=== PATIENT | male | born 1980 | race Caucasian/White ===

== ENCOUNTER 2017-07-18 17:22 | Emergency (ER) | payer BC ==
[~2017-07-18] VITALS: Ht 190.5 cm; Wt 113.4 kg
[2017-07-18 17:45] VITALS: BP 157/101
--- NOTE | 2017-07-18 18:11 | NUR ---
URINE OBTAINED CALLED LAB FOR PICKUP
--- NOTE | 2017-07-18 18:20 | NUR ---
POST VOID RESIDUAL [id number]. INFORMED.
[2017-07-18 18:29] LABS: APPEARANCE,URINE Clear (CLEAR); BILIRUBIN,URINE Negative (NEGATIVE); BLOOD, URINE Negative Ery/uL (NEGATIVE); COLOR,URINE Yellow (YELLOW); KETONES,URINE Negative (NEGATIVE); LEUKOCYTE ESTERASE ,URINE Negative (NEGATIVE); NITRITE, URINE Negative (NEGATIVE); PROTEIN,URINE Negative (NEGATIVE); UGLUCOSE Negative (NEGATIVE); UROBILINOGEN,URINE 0.2 EU/dL (0.2)
== END 2017-07-18 18:53 | disposition home or self-care (01) ==
LOC: ER 17:27
DX: R35.0 Frequency of micturition (principal); G89.29 Other chronic pain; I10 Essential (primary) hypertension
CPT/HCPCS: 81001; 99283; A4606; Z7610; 81000-TC